=== PATIENT | male | born 1955 | race Caucasian/White ===

== ENCOUNTER 2023-10-28 11:24 | Outpatient (CLI) | payer MEDICARE, OTHER ==
[2023-10-28 12:21] LABS: Hematocrit 38.9 % (38.8-50.0); Mean Corpuscular Hemoglobin 33.5 pg (27.0-33.0); Mean Corpuscular Volume 93.1 fL (81.2-95.1); Mean Platelet Volume 8.9 fL (7.4-10.4); Platelet Count 217 10x3/uL (150-450); RBC Distribution Width 13.6 % (11.5-14.5); Red Blood Cell (RBC) Count 4.18 10x6/uL (4.32-5.72); White Blood Cell (WBC) Count 6.3 10x3/uL (3.5-10.5)
[2023-10-28 12:38] LABS: Anion Gap 13 mmol/L (10-20); BUN (Urea Nitrogen) 16 mg/dL (8.4-25.7); Calc. Creatinine Clearance 0 mL/min (70-130); Calcium 9.2 mg/dL (7.8-10.44); Carbon Dioxide 25 mmol/L (23-31); Chloride 102 mmol/L (98-107); Estimated GFR 92; Glucose 88 mg/dL (80-115); Potassium 4.4 mmol/L (3.5-5.1); Sodium 136 mmol/L (136-145)
== END 2023-10-28 11:25 | disposition home or self-care (01) ==
LOC: CSHLAB 11:24
PROVIDERS: ATTEND Otolaryngology
DX: Z01.812 Encounter for preprocedural laboratory examination (principal); K11.8 Other diseases of salivary glands
CPT/HCPCS: 80048; 85027